=== PATIENT | male | born 1980 | race Hispanic/Latino ===

== ENCOUNTER 2018-08-29 18:01 | Emergency (ER) | payer OTHER ==
[~2018-08-29] VITALS: Ht 182.9 cm; Wt 99.8 kg
[2018-08-29] MEDS ORDERED: METFORMIN HCL500 MG PO ×2 (18:23→21:21)
--- OUTSIDE RECORDS SUMMARY | 2018-08-29 18:52 | XMS ---
PreManage Notification: OPAL ALMODOVAR Security Lvn Events No recent Security Events currently on file CRITERIA MET - [facility] - 2 Visits in 30 Days CARE PROVIDERS JOAQUIN ADAME Current PHONE: Unknown [facility] Primary Care Current - [facility] PHONE: [phone] [facility] Current PHONE: Unknown Franco has no Care Guidelines for this patient. E.D. VISIT COUNT (12 MO.) 2 Shantell Vo 1 EVARISTO Adrian TOTAL 3 NOTE: Visits indicate total known visits. ED/UCC VISIT TRACKING (12 MO.) 08/29/2018 18:02 EVARISTO [place] TYPE: Emergency COMPLAINT: - DIABETIC PROBLEM 08/25/2018 22:14 Shantell Douglas [facility] Gilda Vo TYPE: Emergency 08/22/2018 04:30 [facility]ilda [facility]CA [facility] [place]: Emergency INPATIENT VISIT TRACKING (12 MO.) No inpatient visits to display in this time frame [email or web address]
== END 2018-08-29 21:40 | disposition home or self-care (01) ==
LOC: ED 18:01
DX: E11.65 Type 2 diabetes mellitus with hyperglycemia (principal); Z91.19 Patient's noncompliance with other medical treatment and regimen; F17.200 Nicotine dependence, unspecified, uncomplicated; Z79.84 Long term (current) use of oral hypoglycemic drugs
CPT/HCPCS: 36415; 36600; 80053; 81001; 82010; 82803; 85025; 96365; 96366; 96376; 99285-25; J1815; J7030